=== PATIENT | female | born 2005 | race Hispanic/Latino ===

== ENCOUNTER 2025-04-04 21:13 | Emergency (ER) | payer MEDICAID, OTHER ==
[~2025-04-04] VITALS: Ht 160 cm; Wt 83.9 kg
[2025-04-04 22:28] LABS: IMMATURE GRANULOCYTE ABSOLUTE 0.03 K/uL (0-1); NUCLEATED RED BLOOD CELLS 0.0 % (0.0-0.19); PLATELET COUNT (AUTO) 337 K/uL (130-400); RED BLOOD CELL COUNT(AUTO) 3.80 MIL/uL (4.00-5.50); RED CELL DISTRIBUTION WIDTH 14.1 % (11.0-15.5); WHITE BLOOD COUNT (AUTO) 10.6 K/uL (4.8-10.8)
[2025-04-04 22:36] LABS: CREATININE 0.6 mg/dL (0.5-1.0); GLOMERULAR FILTR. RATE CALC 132.0 mL/min (>90); GLUCOSE,RANDOM 99.0 mg/dL (70-105); SODIUM SERUM 134.0 mmol/L (136-145); UREA NITROGEN, BLOOD 16.0 mg/dL (7-18)
[2025-04-04 22:47] LABS: HCG,QUANTITATIVE 0.0 mIU/mL (0-5)
[2025-04-04] MEDS: 0.9%NACL 1000ML 1,000 ML IV ONE (23:42)
--- NOTE | 2025-04-04 23:51 | HMCIMG ---
EXAM: CT Head Without IV contrast. CLINICAL HISTORY: Seizure with fall to the ground and head injury TECHNIQUE: Axial computed tomography images of the head/brain without intravenous contrast. COMPARISON: None provided. 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 No evidence of acute hemorrhage. No mass lesion. No CT evidence for acute territorial infarct. No midline shift or extra-axial collections. VENTRICLES: No hydrocephalus. ORBITS: The orbits are unremarkable. SINUSES AND MASTOIDS: The paranasal sinuses and mastoid air cells are clear. BONES: No fracture. SOFT TISSUES: Subgaleal swelling/hematoma measuring 5.6 mm in the right paramedian aspect of the occipital region. IMPRESSION: No evidence of acute hemorrhage. No mass lesion. No CT evidence for acute territorial infarct. Suggest an MRI brain for further evaluation, if clinically indicated. Subgaleal swelling/hematoma measuring 5.6 mm in the right paramedian aspect of the occipital region. No evidence of underlying osseous injury. 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 /[employer]
--- NOTE | 2025-04-05 00:34 | ERN ---
ED Note History of Present Illness Stated Complaint: SEIZURE Chief Complaint: Seizure Time Seen by MD: 22:11 Dictation: This is a 20-year-old obese female with known history of epilepsy and seizure disorder is on Keppra at baseline. Apparently she has been having multiple seizures episodes in the past 1-2 months and she has been to [facility] multiple times and 1 such admission she had to stay in the ER due to lack of bed availability. Patient's spouse Ji, offered most of the information and stated that towards the end of the day she has been having more seizure episodes lasting sometimes back to back 1 to 2 minutes max. Today patient had a seizure episode tonic-clonic and fell backwards hit her head on the backside. By the time she came here she was alert awake answering questions appropriately. Complains of occipital pain and headache. No nausea vomitings no other injuries anywhere. She denied any bladder or bowel incontinence. Also denied biting the tongue. Per Ji there are times when they look like absence attacks without tonic-clonic activity. She is followed by Dr. Sammy Baeza, neurologist. Patient stated that recently her Keppra dose was increased to 1500 mg twice a day. GCS 15 at presentation NIH 0 Temperature 98.5 pulse 80 respirations 16 blood pressure 111/68 with a pulse oximetry of 99% on room air Known history of seizure disorder Allergies: Coded Allergies: lorazepam (Unverified Adverse Reaction, Unknown, HALLUCINATIONS, 04/05/25) Past Medical History Past Medical History: Seizure Surgical History: None Family History: Negative Social History: Negative RN Note Reviewed/Agreed w/PFSH: Yes Review of System Dictation Constitutional: Negative for fever,chills, and weight loss Eyes: Negative for injury, pain,redness, and discharge ENT: Negative for injury,pain or swelling Cardiovascular: Negative for chest pain, palpitations, and edema Respiratory: Negative for shortness of breath, cough, and wheezing, Abdomen/GI: Negative for abdominal pain, nausea, vomiting, diarrhea, and constipation Back: Negative for injury and pain : Negative for injury, bleeding and discharge MS/Extremity: Negative for injury and deformity Skin: Negative for rash, and discoloration Neuro: Positive for headache, seizure denied weakness, numbness, tingling positive for fall and closed head injury of the back of the head Psych: Negative for suicide ideation, homicidal ideation, and hallucinations Initial Vital Sign VS Vital Signs Date Time Temp Pulse Resp B/P (MAP) Pulse Ox O2 Delivery O2 Flow Rate FiO2 04/04/25 21:14 98.4 80 16 111/68 99 Room Air 0 04/04/25 23:40 21 Physical Exam Dictation General: awake, alert, NAD Head/Face: Normocephalic, atraumatic- tenderness in the occipital area to palpation but I did not feel any bony deformity or hematoma Eyes: PERRL, EOMI, vision at baseline ENT: oral cavity clear, TMs clear, no signs of infection Neck: Trachea midline, supple, no nuchal rigidity Cardiovascular: RRR, normal S1/S2, No MRGs, no JVD Respiratory: CTAB, no respiratory distress, No rales or wheezes Abdomen: Soft, non-tender, non-distended, normal bowel sounds, no guarding or rebound. Skin: Warm, dry, normal turgor, no rash MS/Extremity: Pulses equal, no cyanosis, neurovascular intact, FROM Neuro: COAx4, GCS 15, strength 5/5, CN 2-12 intact, normal cerebellar exam, normal gait, Psych: Normal behavior, mood, and affect normal Extremities-trace edema without any palpable cords, Homans sign is negative Results (Laboratory/Radiology) Laboratory/Radiology Laboratory Tests Test 04/04/25 22:22 White Blood Count 10.6 K/uL (4.8-10.8) Red Blood Count 3.80 MIL/uL (4.00-5.50) L Hemoglobin 11.4 g/dL (12.0-16.0) L Hematocrit 34.8 % (36-48) L Mean Corpuscular Volume 91.6 fL (80-100) Mean Corpuscular Hemoglobin 30.0 pg (27.0-33.0) Mean Corpuscular Hemoglobin Concent 32.8 g/dL (32.0-36.0) Red Cell Distribution Width 14.1 % (11.0-15.5) Platelet Count 337 K/uL (130-400) Mean Platelet Volume 9.3 fL (7.5-10.5) Immature Granulocyte % (Auto) 0.3 % (0-1) Neutrophils (%) (Auto) 71.8 % (40.0-77.0) Lymphocytes (%) (Auto) 19.1 % (21.0-51.0) L Monocytes (%) (Auto) 6.3 % (3.0-13.0) Eosinophils (%) (Auto) 2.1 % (0.0-8.0) Basophils (%) (Auto) 0.4 % (0.0-5.0) Neutrophils # (Auto) 7.6 K/uL (1.8-7.7) Lymphocytes # (Auto) 2.0 K/uL (1.0-4.8) Monocytes # (Auto) 0.7 K/uL (0.1-1.0) Eosinophils # (Auto) 0.22 K/uL (0.00-0.70) Basophils # (Auto) 0.04 K/uL (0.00-0.20) Absolute Immature Granulocyte (auto 0.03 K/uL (0-1) Nucleated Red Blood Cells 0.0 % (0.0-0.19) Sodium Level 134 mmol/L (136-145) L Potassium Level 3.9 mmol/L (3.5-5.1) Chloride Level 101 mmol/L (101-111) Carbon Dioxide Level 27 mmol/L (21-32) Blood Urea Nitrogen 16 mg/dL (7-18) Creatinine 0.6 mg/dL (0.5-1.0) Glomerular Filtration Rate Calc 132 mL/min (>90) Random Glucose 99 mg/dL (70-105) Total Calcium 8.4 mg/dL (8.5-10.1) L Human Chorionic Gonadotropin, Quant 0 mIU/mL (0-5) Labs Reviewed?: Yes CT Scan Comment: REASON: seizure with fall to ground and head injury ORDERING PHYSICIAN: DEX SEVERINO MD PROCEDURE: HEAD WO - CT HEAD/BRAIN W/O CONTRAST EXAM: CT Head Without IV contrast. CLINICAL HISTORY: Seizure with fall to the ground and head injury TECHNIQUE: Axial computed tomography images of the head/brain without intravenous contrast. COMPARISON: None provided. 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 No evidence of acute hemorrhage. No mass lesion. No CT evidence for acute territorial infarct. No midline shift or extra-axial collections. VENTRICLES: No hydrocephalus. ORBITS: The orbits are unremarkable. SINUSES AND MASTOIDS: The paranasal sinuses and mastoid air cells are clear. BONES: No fracture. SOFT TISSUES: Subgaleal swelling/hematoma measuring 5.6 mm in the right paramedian aspect of the occipital region. IMPRESSION: No evidence of acute hemorrhage. No mass lesion. No CT evidence for acute territorial infarct. Suggest an MRI brain for further evaluation, if clinically indicated. Subgaleal swelling/hematoma measuring 5.6 mm in the right paramedian aspect of the occipital region. No evidence of underlying osseous injury. 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 /[place] DICTATED BY: JOAN MAR Jr., MD DATE: 04/05/2550 ELECTRONICALLY SIGNED BY: JOAN MAR Jr., MD DATE: 04/05/2550 Close ED Course ED Course Orders Procedure Category Date Status Time Cbc With Differential LAB 04/04/25 Complete 22:13 Ct Head/Brain W/O CT 04/04/25 Resulted Contrast 22:13 0.9%Nacl 1000ml (Ns PHA 04/04/25 Complete 1000ml) 22:30 Basic Metabolic Panel LAB 04/04/25 Complete 22:13 Hcg,Quantitative LAB 04/04/25 Complete 22:13 Urinalysis Profile LAB 04/04/25 Logged 22:13 Drug Screen Urine LAB 04/04/25 Logged 22:13 Levetiracetam 500 PHA 04/05/25 Complete Mg/5 Ml Sd V (Keppra 5 00:30 Hydromorphone 1 Mg PHA 04/05/25 Complete Inj (Dilaudid 1mg Inj 00:30 Ondansetron 4mg Inj PHA 04/05/25 Complete (Zofran 4mg Inj) 00:30 Levetiracetam 500 PHA 04/05/25 Complete Mg/5 Ml Sd V (Keppra 5 00:30 Current Medications Medications (Trade) Dose Ordered Sig/Sarah Route PRN Reason Start Time Stop Time Status Last Admin Dose Admin Hydromorphone HCl (DiLAUDid 1MG INJ) 1 mg ONCE ONCE IVP 04/05/25 00:30 04/05/25 00:31 DC 04/05/25 00:51 Levetiracetam (kepPRA 500 MG/5 ML SD VIAL) 1,000 mg ONCE IV 04/05/25 00:30 04/05/25 00:25 DC Levetiracetam 1000 mg/Sodium Chloride 100 ml @ 400 mls/hr ONCE ONCE IV 04/05/25 00:30 04/05/25 00:44 DC 04/05/25 01:03 Ondansetron HCl (zoFRAN 4MG INJ) 4 mg ONCE ONCE IVP 04/05/25 00:30 04/05/25 00:31 DC 04/05/25 00:50 Sodium Chloride 1,000 ml @ 125 mls/hr ONCE ONCE IV 04/04/25 22:30 04/05/25 02:30 DC 04/04/25 23:42 Vital Signs Date Time Temp Pulse Resp B/P (MAP) Pulse Ox O2 Delivery O2 Flow Rate FiO2 04/05/25 01:43 99.0 63 15 94/39 100 Room Air* 0 21 04/04/25 23:40 98.4 73 18 114/63 98 Room Air* 0 21 04/04/25 21:14 98.4 80 16 111/68 99 Room Air 0 Medical Decision Making MDM Differential diagnosis: Recurrent seizures-inadequate dosing, dehydration, infection, intracranial event, , recreational drugs This is a 20-year-old obese female with known history of epilepsy and seizure disorder is on Keppra at baseline. Apparently she has been having multiple seizures episodes in the past 1-2 months and she has been to [facility] multiple times and 1 such admission she had to stay in the ER due to lack of bed availability. Patient's spouse Ji, offered most of the information and stated that towards the end of the day she has been having more seizure episodes lasting sometimes back to back 1 to 2 minutes max. Today patient had a seizure episode tonic-clonic and fell backwards hit her head on the backside. By the time she came here she was alert awake answering questions appropriately. Complains of occipital pain and headache. No nausea vomitings no other injuries anywhere. She denied any bladder or bowel incontinence. Also denied biting the tongue. Per Ji there are times when they look like absence attacks without tonic-clonic activity. She is followed by Dr. Sammy Baeza, neurologist. Patient stated that recently her Keppra dose was increased to 1500 mg twice a day. Temperature 98.5 pulse 80 respirations 16 blood pressure 111/68 with a pulse oximetry of 99% on room air Known history of seizure disorder 11:20 p.m. labs reviewed CBC shows a hemoglobin of 11.4, BNP 7 is significant for a sodium of 134 otherwise with a normal limits. test is negative [address] scan of the head-subgaleal swelling and hemorrhage about 5-6 mm in the occipital area and also arachnoid granulation tissue-please see the full report Due to lack of availability of neurosurgery services, initiated transfer to [facility]. 12:10 a.m.-discussed with Dr. Osiris peterson trauma surgeon who recommended ER to ER transfer. 12:[address] Palma, ER physician and updated her on the presentation and recommendations of the trauma surgeon and need for further evaluation. Patient was accepted and once transportation is arranged she will be transferred to [facility] ER Patient received IV fluids and Keppra 1000 mg IV. Symptomatic management of headache with a small dose of Dilaudid and Zofran given PATIENT BEING TRANSFERRED TO [facility] FOR NEUROLOGY AND TRAUMA/ NEUROSURGERY SERVICES Rationale: Tests considered and ordered secondary to shared decision making include: labs, ECG and radiology Previous outside records reviewed: Old ER visits. Risk of complication and/or morbidity or mortality of patient management: None Medications-Per medication reconciliation Need for hospitalization: Patient does meet criteria for hospitalization. Need for emergency major/minor surgery: No There are no social concerns with this patient. Prescription drug management Prescriptions will include symptomatic care Patient's prior external medical records from other ER visits were reviewed by me as indicated. Prior testing and results from previous visits were reviewed. Prior tests were taken into account with medical decision making and resource utilization, independent historian/historians were used to obtain complete medical history. I independently interpreted the test that were performed, results were reviewed by me and considered findings on radiology if ordered. Medical management and examination interpretation discussions were had by me with other qualified healthcare professionals as indicated for the patient's care. Problem List Problem List: (1) Seizure (2) Closed head injury (3) Subgaleal hemorrhage (4) Postictal headache DX & DISP Disposition: Transfer Departure Impression: Primary Impression: Seizure Additional Impressions: Closed head injury, Subgaleal hemorrhage, Postictal headache Condition: Stable Additional Instructions: The patient has been informed about all the diagnostic tests and procedures carried out in the emergency room today and has confirmed understanding of the results. Patient will be transferred to a facility that provides a higher level of care since such services are not accessible locally or within our immediate community. The patient is alert oriented and not experiencing any acute distress. There are no signs of sepsis and patient's hemodynamic status is stable at the moment. Medically, the patient is considered stable for transfer Patient will be transferred to [facility] emergency room as E R to ER transfer Referrals: SAMMY BAEZA MD (PCP) DEX SEVERINO MD Apr 05, 2025 00:34
[2025-04-05] MEDS: leveTIRACEtam 500 MG/5 ML SD V 1,000 MG in 0.9%NACL 100ML 100 ML IV ONE (01:03)
[2025-04-05 01:43] VITALS: BP 94/39; PULSE 63; RESP 15; TEMP 98.9; O2SAT 100
--- NOTE | 2025-04-05 01:45 | NUR ---
REPORT CALLED TO [facility] AT THIS TIME, REPORT GIVEN TO NURSE GARNETT RN WILL CONT TO MONITOR
--- NOTE | 2025-04-05 01:54 | NUR ---
EMS HERE PATIENT IS BEEN TRANSPORTED TO [facility]
== END 2025-04-05 01:54 | disposition short-term general hospital (02) ==
LOC: EDH 21:13
DX: S09.90XA Unspecified injury of head, initial encounter (principal); R56.9 Unspecified convulsions; G44.309 Post-traumatic headache, unspecified, not intractable; R10.20 Pelvic and perineal pain unspecified side; W18.39XA Other fall on same level, initial encounter; Y93.89 Activity, other specified; Y92.89 Other specified places as the place of occurrence of the external cause; Y99.8 Other external cause status
CPT/HCPCS: 99285; 70450; 80048; 84702; 85025; 36415; 96374; 96375; 96361; J7030; J1171; J1953; J2405